=== PATIENT | male | born 1970 | race Caucasian/White ===

== ENCOUNTER 2020-03-01 19:27 | Emergency (ER) | payer OTHER ==
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
[2020-03-01 20:08] VITALS: TEMP 98.4
--- NOTE | 2020-03-01 21:11 | CT ---
EXAMINATION TYPE: CT brain keanuine wo con DATE OF EXAM: 03/01/2020 COMPARISON: None HISTORY: neck pain CT DLP: 1413.2 mGycm, Automated exposure control for dose reduction was used. CONTRAST: Patient injected with 0 mL of Isovue 300. CT of the brain is performed utilizing 3 mm thick sections through the posterior fossa and 3 mm thick sections through the remaining calvarium. Study is performed within 24 hours of arrival to the hospital. No abnormal hyperdensity is present to suggest an acute intracranial hemorrhage. No mass lesion is evident. No acute infarcts are evident. Ventricles and sulci are appropriate for the patient age. There is prominence of the extra-axial spa ce along the inferior frontal lobes compatible with encephalomalacia. Paranasal sinuses and mastoid air cells within the [id number] are clear. IMPRESSIONS: 1. Posttraumatic type changes inferior frontal lobes. 2. No acute intracranial abnormality CT cervical spine. COMPARISON: None CT of the cervical spine is performed in the axial plane at 2 mm thick sections. Reconstructed image s in the coronal, and sagittal plane are reviewed on the computer. No acute fractures are evident. Vertebral body alignment is normal. Disc heights are preserved. Vertebral body heights are preserved. No spinal canal stenosis is evident. Endplate spurring however is noted at C4, C5 and C6. C5-6 uncovertebral joint hypertrophy has moderate bilateral foraminal narrowing. Severe foraminal lori rowing is present C6-7 due to uncovertebral joint hypertrophy. IMPRESSIONS: 1. No acute osseous abnormality. 2. Degenerative changes with severe foraminal narrowing C6-7.
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
[2020-03-01] MEDS ORDERED: ACET/COD 300 MG/30 MG STARTER PACK 6 TAB BTL PO STA (21:37)
[2020-03-01 22:03] VITALS: BP 150/101; PULSE 67; RESP 18
== END 2020-03-01 22:03 | disposition home or self-care (01) ==
LOC: EC 19:27
DX: S09.90XA Unspecified injury of head, initial encounter (principal); M25.332 Other instability, left wrist; W18.09XA Striking against other object with subsequent fall, initial encounter; Y92.89 Other specified places as the place of occurrence of the external cause
CPT/HCPCS: 73090; 73110; 72125; 70450; 99284; 29125; L0120